=== PATIENT | male | born 1980 | race Caucasian/White ===

== ENCOUNTER 2019-09-06 19:31 | Emergency (ER) | payer OTHER ==
[2019-09-06] MEDS ORDERED: D50W 25 GM/50 ML SYRINGE/VIAL IV ONE (20:20)
[2019-09-06 22:02] LABS: Absolute Lymphocytes (CBC) 1.8 K/uL (0.7-4.9); Basophils % 0.8 % (0-1.3); Lymphocytes % 24.3 % (15.3-44.8); RBC Red Blood Cell Count 3.78 M/uL (4.33-5.43)
[2019-09-06 22:09] LABS: ALT/SGPT 18 U/L (12-78); AST/SGOT 32 U/L (15-37); Alkaline Phosphatase 38 U/L (45-117); BUN Blood Urea Nitrogen 108 mg/dL (7-18); Bicarbonate 29 mmol/L (21-32); Bilirubin Direct < 0.1 mg/dL (0-0.2); Bilirubin Total 0.3 mg/dL (0.2-1.0); Glucose Level 172 mg/dL (74-106); NT PRO-BNP 482 pg/mL (<125); Potassium 3.4 mmol/L (3.5-5.1); Protein, Total 7.3 g/dL (6.4-8.2); Sodium Level 138 mmol/L (136-145); Troponin (Emerg Dept Use Only) 0.03 ng/mL (0.0-0.045)
[2019-09-06 22:30] LABS: Protime INR 0.94
[2019-09-07 02:17] LABS: Troponin I 0.03 ng/mL (0.0-0.045)
--- NOTE | 2019-09-07 03:31 | ER ---
Nurse's Notes [facility] Name: Matheus Connor Age: 38 yrs Sex: Male : 1980 Arrival Date: 09/06/2019 Time: 19:34 Bed 16 Private MD: Diagnosis: Acute pancreatitis, unspecified;Cholecystitis;End stage renal disease;Hypoglycemia, unspecified Presentation: 09/05 19:34 Chief complaint: EMS states: called out to [facility] for em unresponsive person, pt has history of being hypoglycemic and was given an amp of D50 prior to checking glucose, BGL 340 after administration, pt was A\T\O x 4 when EMS arrived, pt reports right sided weakness and right sided pain, EMS BGL 124 on arrival, pt was Covid pos on 08/05, transferred to [facility] and had 2 negative swabs, pt denies fever and cough. Coronavirus screen: Surgical mask placed on patient. Patient moved to private room, placed in contact and droplet isolation with eye protection until further assessment. Patient denies a cough. Patient denies shortness of breath or difficulty breathing. Patient denies measured and/or subjective temperature greater than 100.4F prior to today's visit. Patient denies travel on a cruise ship or to a country the [facility] currently lists as an affected area. Patient denies contact with known and/or suspected case of COVID-19. Prior COVID test collected on: 08/06/19 positive. Ebola Screen: Patient negative for fever greater than or equal to 101.5 degrees Fahrenheit, and additional compatible Ebola Virus Disease symptoms Patient denies exposure to infectious person. Patient denies travel to an Ebola-affected area in the 21 days before illness onset. No symptoms or risks identified at this time. Initial Sepsis Screen: Does the patient meet any 2 criteria? No. Patient's initial sepsis screen is negative. Does the patient have a suspected source of infection? No. Patient's initial sepsis screen is negative. Risk Assessment: Do you want to hurt yourself or someone else? Patient reports no desire to harm self or others. Onset of symptoms was September 06, 2019. 19:34 Method Of Arrival: EMS: [facility] em 19:34 Acuity: RONNIE 2 em Historical: - Allergies: 19:44 No Known Allergies; em - Home Meds: 19:44 levemir [Active]; Humalog Sub-Q [Active]; em - PMHx: 19:44 Diabetes - IDDM; ESRD; em - PSHx: 19:44 dialysis shunt right arm; em - Immunization history:: Flu vaccine is not up to date. - Social history:: Smoking status: Patient denies any tobacco usage or history of. Screenin:56 Abuse screen: Denies threats or abuse. Denies injuries from another. Nutritional lp1 screening: No deficits noted. Tuberculosis screening: No symptoms or risk factors identified. Fall Risk None identified. Assessment: 19:55 General: Appears in no apparent distress. Behavior is calm, cooperative, appropriate lp1 for age. Pain: Denies pain. Neuro: Level of Consciousness is awake, alert, obeys commands, Oriented to person, place, time, situation. Cardiovascular: Patient's skin is warm and dry. Respiratory: Respiratory effort is even, unlabored. GI: No signs and/or symptoms were reported involving the gastrointestinal system. : No signs and/or symptoms were reported regarding the genitourinary system. EENT: No signs and/or symptoms were reported regarding the EENT system. Derm: Skin is intact, Skin is dry, Skin is pale. Musculoskeletal: No deficits noted. 20:27 Reassessment: Verbal order from Provider to give sandwich; patient A/O x3 at this time. lp1 22:00 Reassessment: Patient appears in no apparent distress at this time. Patient and/or lp1 family updated on plan of care and expected duration. Pain level reassessed. Patient resting, no further needs; guards at bedside. 23:36 Reassessment: Patient appears in no apparent distress at this time. No changes from lp1 previously documented assessment. 09/06 01:44 Reassessment: Assisted patient to [facility]. lp1 02:35 Reassessment: Patient aware of need for transfer. lp1 03:48 Reassessment: Report given to BETZY White for patient transfer to [facility] to 631 Bed 1. lp1 04:38 Reassessment: Patient aware of pending transfer to arrive at 0700, [place]. lp1 07:00 Reassessment: RECD REPORT FROM MISA BO. 38YO WM P/W SYNCOPE AND HYPOGLYCEMIA. PT IS bp TDCJ, TRANSPORT PENDING FOR TRANSFER, REPORT BY PREVIOUS SHIFT. 07:23 Reassessment: [place] AT B/S FOR TRANSPORT. bp Vital Signs: 09/05 19:34 BP 161 / 75; Pulse 51; Resp 18; Temp 97.8(TE); Pulse Ox 100% on R/A; Weight 59.87 kg; em Height 5 ft. 3 in. (160.02 cm); 19:55 BP 158 / 76; Pulse 49; Resp 12; Pulse Ox 99% on R/A; lp1 20:53 BP 140 / 73; Pulse 49; Resp 14; Pulse Ox 99% on R/A; lp1 22:28 BP 189 / 83 LA Supine; Pulse 59; Resp 12; Pulse Ox 100% on R/A; lp1 22:28 BP 178 / 83 LA Sitting; Pulse 59; lp1 22:28 BP 160 / 77 LA Standing; Pulse 58; lp1 23:04 BP 176 / 88; Pulse 63; Resp 18; Pulse Ox 99% on R/A; wh 09/06 00:30 BP 167 / 85; Pulse 64; Resp 12; Pulse Ox 98% on R/A; lp1 02:52 BP 173 / 85; Pulse 69; Resp 13; Temp 97.6(TE); Pulse Ox 98% on R/A; lp1 03:34 BP 166 / 84; Pulse 70; Resp 12; Pulse Ox 98% on R/A; lp1 05:30 BP 144 / 82; Pulse 73; Resp 12; Pulse Ox 97% on R/A; lp1 07:00 BP 175 / 88; Pulse 79; Resp 13; Temp 97.8; Pulse Ox 98% ; bp 09/05 19:34 Body Mass Index 23.38 (59.87 kg, 160.02 cm) em ED Course: 09/05 19:34 Patient arrived in ED. em 19:39 Obie Wilkinson PA is PHCP. cp 19:39 Gagan Barraza MD is Attending Physician. cp 19:41 Triage completed. em 19:44 Misa Ricks, BETZY is Primary Nurse. lp1 19:44 Arm band placed on. em 19:56 Patient has correct armband on for positive identification. Bed in low position. Call lp1 light in reach. Security at bedside. Patient is inmate. patient monitor on. Pulse ox on. NIBP on. 20:00 Maintain EMS IV. Dressing intact. Good blood return noted. Site clean \T\ dry. Gauge \T\ lp 1 site: 20g to L AC. 21:15 Initial lab(s) drawn, by me, sent to lab. lp1 23:41 XRAY Chest (1 view) In Process Unspecified. EDMS 09/06 01:11 CT Head Brain wo Cont In Process Unspecified. EDMS 01:12 CT Abd/Pelvis - Without Contrast In Process Unspecified. EDMS 01:44 No provider procedures requiring assistance completed. lp1 07:24 Patient transferred, IV remains in place. bp Administered Medications: 09/05 20:27 Drug: D50W 50 ml {Note: Verbal order per PA. Tonia} Route: IVP; Site: left lp1 antecubital; 21:19 Follow up: Response: Blood sugar is elevated lp1 09/06 04:11 Drug: morphine 4 mg Route: IVP; Site: left antecubital; lp1 05:00 Follow up: Response: No adverse reaction; Pain is decreased lp1 Outcome: 03:31 ER care complete, transfer ordered by MD. morales 03:32 Condition: stable lp1 03:32 Instructed on the need for transfer. 07:24 Transferred by ground EMS [facility]. to [facility], Transfer form bp completed. 08:02 Patient left the ED. sv Signatures: Dispatcher [employer] Alysha Slater, RN BETZY sv George Luu, RN RN Misa Kendrick, RN RN lp1 Obie Wilkinson PA PA cp Habalo, Winsy wh Peltier, Brian, RN RN bp
--- NOTE | 2019-09-07 03:32 | EDPHYS ---
Physician Documentation [facility] Name: Matheus Connor Age: 38 yrs Sex: Male : 1980 Arrival Date: 09/06/2019 Time: 19:34 Bed 16 Private MD: ED Physician Gagan Barraza HPI: 09/05 19:55 This 38 yrs old Male presents to ER via EMS with complaints of Syncope. cp 19:55 The patient has experienced syncope, lost consciousness. Onset: The symptoms/episode cp began/occurred today. Duration: This was a single episode, that lasted an unknown period of time. 19:55 Associated injury: The patient did not suffer any apparent associated injury. cp 19:55 Patient reports he was feeling hot about 1200, went to lay down on ground and awoke cp about 1300 in [facility]. Patient reports blood sugar was low and had some epigastric pain. Historical: - Allergies: 19:44 No Known Allergies; em - Home Meds: 19:44 levemir [Active]; Humalog Sub-Q [Active]; em - PMHx: 19:44 Diabetes - IDDM; ESRD; em - PSHx: 19:44 dialysis shunt right arm; em - Immunization history:: Flu vaccine is not up to date. - Social history:: Smoking status: Patient denies any tobacco usage or history of. ROS: 20:00 Cardiovascular: Negative for chest pain, edema, palpitations. cp 20:00 Constitutional: Negative for body aches, chills, fever, poor PO intake. cp 20:00 Eyes: Negative for injury, pain, redness, and discharge. cp 20:00 ENT: Negative for ear pain, sore throat, difficulty swallowing, difficulty handling secretions. 20:00 Respiratory: Negative for cough, shortness of breath, wheezing. 20:00 Abdomen/GI: Positive for abdominal pain, Negative for nausea, vomiting, and diarrhea, constipation, black/tarry stool, rectal bleeding. 20:00 Back: Negative for radiated pain. 20:00 : Negative for urinary symptoms, testicular pain 20:00 Neuro: Negative for altered mental status, dizziness, headache, numbness, speech cp changes, weakness. 20:00 All other systems are negative. Exam: 20:05 Constitutional: The patient appears in no acute distress, alert, awake, cp non-diaphoretic, non-toxic, well developed, well nourished. 20:05 Head/Face: Normocephalic, atraumatic. cp 20:05 Eyes: Periorbital structures: appear normal, Conjunctiva: normal, no exudate, no injection, Sclera: no appreciated abnormality, Lids and lashes: appear normal, bilaterally. 20:05 ENT: External ear(s): are unremarkable, Nose: is normal, Mouth: is normal, Posterior pharynx: is normal, airway is patent, no erythema, no exudate. 20:05 Chest/axilla: Inspection: normal, Palpation: is normal, no crepitus, no tenderness. 20:05 Cardiovascular: Rate: bradycardic, Rhythm: regular, Edema: is not appreciated, JVD: is not appreciated. 20:05 Respiratory: the patient does not display signs of respiratory distress, Respirations: normal, no use of accessory muscles, no retractions, labored breathing, is not present, Breath sounds: are clear throughout, no decreased breath sounds, no stridor, no wheezing. 20:05 Abdomen/GI: Inspection: abdomen appears normal, Bowel sounds: active, all quadrants, Palpation: soft, in all quadrants, mild abdominal tenderness, in the epigastric area, rebound tenderness, is not appreciated, voluntary guarding, is elicited in the epigastric area. 20:05 Back: pain, is absent, ROM is normal. 20:50 ECG was reviewed by the Attending Physician. cp Vital Signs: 19:34 BP 161 / 75; Pulse 51; Resp 18; Temp 97.8(TE); Pulse Ox 100% on R/A; Weight 59.87 kg; em Height 5 ft. 3 in. (160.02 cm); 19:55 BP 158 / 76; Pulse 49; Resp 12; Pulse Ox 99% on R/A; lp1 20:53 BP 140 / 73; Pulse 49; Resp 14; Pulse Ox 99% on R/A; lp1 22:28 BP 189 / 83 LA Supine; Pulse 59; Resp 12; Pulse Ox 100% on R/A; lp1 22:28 BP 178 / 83 LA Sitting; Pulse 59; lp1 22:28 BP 160 / 77 LA Standing; Pulse 58; lp1 23:04 BP 176 / 88; Pulse 63; Resp 18; Pulse Ox 99% on R/A; wh 09/06 00:30 BP 167 / 85; Pulse 64; Resp 12; Pulse Ox 98% on R/A; lp1 02:52 BP 173 / 85; Pulse 69; Resp 13; Temp 97.6(TE); Pulse Ox 98% on R/A; lp1 03:34 BP 166 / 84; Pulse 70; Resp 12; Pulse Ox 98% on R/A; lp1 05:30 BP 144 / 82; Pulse 73; Resp 12; Pulse Ox 97% on R/A; lp1 07:00 BP 175 / 88; Pulse 79; Resp 13; Temp 97.8; Pulse Ox 98% ; bp 09/05 19:34 Body Mass Index 23.38 (59.87 kg, 160.02 cm) em MDM: 09/05 19:45 Patient medically screened. cp 20:00 Differential Diagnosis: cardiac arrhythmia, cerebrovascular accident, drug effect, GI cp bleed, idiopathic syncope, seizure, vasovagal episode. 09/06 03:19 Physician consultation: was contacted at 03:19, regarding regarding transfer, to [facility]. patient's condition, DR Jimenez will accept patient as transfer. 03:20 Data reviewed: vital signs, nurses notes, lab test result(s), EKG, radiologic studies, CT scan, plain films, I have discussed the patient's presentation/case with the attending Emergency Department Physician;. 03:20 Test interpretation: by ED physician or midlevel provider: ECG. 09/05 19:51 Order name: Basic Metabolic Panel 09/05 19:51 Order name: CBC with Diff 09/05 19:51 Order name: LFT's 09/05 19:51 Order name: Magnesium 09/05 19:51 Order name: NT PRO-BNP 09/05 19:51 Order name: PT-INR 09/05 19:51 Order name: Troponin (emerg Dept Use Only) 09/05 20:03 Order name: Glucose, Ancillary Testing; Complete Time: 21:57 EDMS 09/05 21:28 Order name: Glucose, Ancillary Testing; Complete Time: 21:57 EDMS 09/05 21:57 Interpretation: GLUC,ANCIL 179; Reviewed. 09/05 22:05 Order name: CBC with Automated Diff; Complete Time: 23:13 EDMS 09/05 23:13 Interpretation: Normal except: RBC 3.78; HGB 10.9; HCT 32.0. cp 09/05 22:12 Order name: Basic Metabolic Panel; Complete Time: 23:13 EDMS 09/05 23:14 Interpretation: Normal except: K 3.4; CL 97; GLUC 172; BUN 108; CRE 7.60; GFR 8; CA cp 10.5. 09/05 22:12 Order name: Liver (Hepatic) Function; Complete Time: 23:13 EDMS 09/05 22:12 Order name: Troponin (Emerg Dept Use Only); Complete Time: 23:13 EDMS 09/05 22:12 Order name: NT PRO-BNP; Complete Time: 23:13 EDMS 09/05 19:40 Order name: EKG; Complete Time: 21:22 09/05 19:40 Order name: EKG - Nurse/Tech; Complete Time: 20:52 09/05 19:40 Order name: Accucheck Blood Glucose; Complete Time: 19:54 09/05 19:51 Order name: XRAY Chest (1 view) 09/05 22:12 Order name: Magnesium; Complete Time: 23:13 EDMS 09/05 23:13 Interpretation: Abnormal: MG 3.0. 09/05 22:32 Order name: Protime (+INR); Complete Time: 23:13 EDMS 09/05 22:39 Order name: Glucose, Ancillary Testing; Complete Time: 23:13 EDMS 09/05 23:32 Order name: CT Head Brain wo Cont 09/05 23:37 Order name: CT Abd/Pelvis - Without Contrast 09/05 23:37 Order name: Troponin I; Complete Time: 02:22 cp 09/06 02:22 Interpretation: Within normal limits: TROP 0.03. cp 09/05 23:45 Order name: Glucose, Ancillary Testing EDMS 09/06 01:36 Order name: LAB Add On 09/06 01:51 Order name: Lipase; Complete Time: 02:22 EDMS 09/06 02:22 Interpretation: Abnormal: LIP 4446. cp 09/06 02:43 Order name: Glucose, Ancillary Testing; Complete Time: 03:16 EDMS 09/05 19:51 Order name: Orthostatic Blood Pressure; Complete Time: 22:29 cp 09/05 19:51 Order name: Cardiac monitoring; Complete Time: 20:52 cp 09/05 19:51 Order name: IV Saline Lock; Complete Time: 20:52 cp 09/05 19:51 Order name: Labs collected and sent; Complete Time: 20:52 cp 09/05 19:51 Order name: O2 Per Protocol; Complete Time: 20:52 cp 09/05 19:51 Order name: O2 Sat Monitoring; Complete Time: 20:52 cp EC/09 20:50 Rate is 56 beats/min. Rhythm is regular. MD interval is normal. QRS interval is cp prolonged at 102 msec. QT interval is normal. T waves are Inverted in lead aVR. Interpreted by me. Reviewed by me. Administered Medications: 20:27 Drug: D50W 50 ml {Note: Verbal order per YAMEL Randall.} Route: IVP; Site: left lp1 antecubital; 21:19 Follow up: Response: Blood sugar is elevated 1 09/06 04:11 Drug: morphine 4 mg Route: IVP; Site: left antecubital; lp1 05:00 Follow up: Response: No adverse reaction; Pain is decreased lp1 Disposition: 06:49 Co-signature as Attending Physician, Gagan Barraza MD. [email or web address] Disposition: 09/07/19 03:31 Transfer ordered to [facility]. Diagnosis are Acute pancreatitis, unspecified, Cholecystitis, End stage renal disease, Hypoglycemia, unspecified. - Reason for transfer: Higher level of care. - Accepting physician is DR Jimenez. - Condition is Stable. - Problem is new. - Symptoms have improved. Signatures: Dispatcher [employer] Alysha Slater RN RN sv Munoz, Edgar, RN RN em Pena, Laura, RN RN [facility] Obie Wilkinson PA PA cp Holmes, Maurice, MD MD 7 Corrections: (The following items were deleted from the chart) 09/05 20:12 19:45 This 38 yrs old Male presents to ER via EMS with complaints of Syncope. cp cp 23:14 23:13 Normal except: K 3.4; CL 97; GLUC 172; BUN 108; CRE 7.60; GFR 8. cp cp 09/06 08:02 03:31 09/07/2019 03:31 Transfer ordered to [facility]. Diagnosis is Acute sv pancreatitis, unspecified; Cholecystitis; End stage renal disease; Hypoglycemia, unspecified. Reason for transfer: Higher level of care. Accepting physician is DR Jimenez. Condition is Stable. Problem is new. Symptoms have improved. cp :09/05 20:00 Neuro: Positive for syncope, Negative for altered mental status, dizziness, cp headache, numbness, tingling, weakness, cp 09/06 10:09/05 20:00 All other systems are negative, cp cp
[2019-09-07] MEDS ORDERED: MORPHINE 4 MG/ML SYR ONE (04:12)
[2019-09-07 08:23] VITALS: BP 175/88; TEMP 97.8; O2SAT 98
--- NOTE | 2019-09-07 08:32 | RAD REPORT ---
EXAM DESCRIPTION: RAD - Chest Single View - 09/06/2019 10:04 pm CLINICAL HISTORY: syncope Chest pain. COMPARISON: No comparisons FINDINGS: Portable technique limits examination quality. Mildly prominent interstitial lung markings bilaterally. The heart is mildly enlarged in size. No dis placed fractures.
--- NOTE | 2019-09-07 19:22 | RAD REPORT ---
EXAM DESCRIPTION: CT Abdomen and Pelvis Without Intravenous Contrast CLINICAL HISTORY: The patient is 38 years old and is Male; ABD PAIN TECHNIQUE: Axial computed tomography images of the abdomen and pelvis without intravenous contrast. Sagittal and coronal reformatted images were created and reviewed. This CT exam was performed usi ng one or more of the following dose reduction techniques: automated exposure control, adjustment o f the mA and/or kV according to patient size, and/or use of iterative reconstruction technique. DLP: 510 mGy*cm COMPARISON: None. FINDINGS: LUNG BASES: Lung bases are clear. HEART: The heart is normal. ABDOMEN: LIVER: Unremarkable. GALLBLADDER AND BILE DUCTS: Layering gallstones with mild gallbladder distention. No ductal dilation. PANCREAS: Advanced diffuse peripancreatic fat stranding and moderate amount of peripancreatic flui d. No ductal dilation. SPLEEN: Unremarkable. No splenomegaly. ADRENALS: Unremarkable. No mass. KIDNEYS AND URETERS: Nonobstructive left renal stone. STOMACH AND BOWEL: Moderate stool burden. No obstruction. No mucosal thickening. PELVIS: APPENDIX: No findings to suggest acute appendicitis. BLADDER: Severe bladder distention. No stones. REPRODUCTIVE: Unremarkable as visualized. ABDOMEN and PELVIS: INTRAPERITONEAL SPACE: Unremarkable. No free air. No significant fluid collection. BONES/JOINTS: No acute fracture. No dislocation. SOFT TISSUES: Mild soft tissue anasarca. Injection granulomas in the abdominal wall. VASCULATURE: Advanced vascular calcifications. No abdominal aortic aneurysm. LYMPH NODES: Unremarkable. No enlarged lymph nodes. IMPRESSION: 1. Findings suggestive of advanced acute pancreatitis. Hemorrhagic or necrotic vegetations cannot b e excluded. 2. Layering gallstones with mild gallbladder distention. Right upper quadrant ultrasound is recom mended. 3. Severe bladder distention. Correlate for bladder outlet obstruction. 4. Moderate stool burden. Correlate for constipation. Electronically signed by: Delbert Aggarwal DO 09/07/2019 1:20 AM CDT Due to temporary technical issues with the PACS/Fluency reporting system, reports are being signed by the in house radiologist without review as a courtesy to ensure prompt reporting. The interpreting r adiologist is fully responsible for the content of the report.
--- NOTE | 2019-09-07 19:24 | RAD REPORT ---
EXAM DESCRIPTION: CT Head Brain Wo Cont CLINICAL HISTORY: 38 years Male SYNCOPE TECHNIQUE: Contiguous axial CT images obtained through the brain without IV contrast. Coronal and sa gittal reformats also provided. This CT exam was performed according to our departmental dose-optimization program, which includes on e or more of the following dose reduction techniques: automated exposure control, adjustment of the m A and/or kV according to patient size, and/or use of iterative reconstruction technique. COMPARISON: No prior exams provided for comparison. FINDINGS: There is no intracranial hemorrhage, extra-axial collection, or acute transcortical infarc tion. The ventricles are normal in size and contour without mass-effect or midline shift. Osseous structures are normal. The paranasal sinuses and mastoid air cells are clear. IMPRESSION: No acute intracranial abnormalities. Electronically signed by: Idalia Headley MD 09/07/2019 1:15 AM CDT Due to temporary technical issues with the PACS/Fluency reporting system, reports are being signed by the in house radiologist without review as a courtesy to ensure prompt reporting. The interpreting r adiologist is fully responsible for the content of the report.
== END 2019-09-07 08:02 | disposition short-term general hospital (02) ==
LOC: EDBD 19:31 → ER 19:31
DX: E11.22 Type 2 diabetes mellitus with diabetic chronic kidney disease (principal); E11.649 Type 2 diabetes mellitus with hypoglycemia without coma; N18.6 End stage renal disease; K85.90 Acute pancreatitis without necrosis or infection, unspecified; K81.9 Cholecystitis, unspecified; Z79.4 Long term (current) use of insulin
CPT/HCPCS: 36415; 70450; 71045; 74176; 80048; 80076; 82947; 83690; 83735; 83880; 84484; 85025; 85610; 96374; 96375; 99285